=== PATIENT | female | born 1985 | race Two or more races ===

== ENCOUNTER 2025-02-14 08:15 | Outpatient (CLI) | payer OTHER | END 2025-02-14 08:16 | disposition home or self-care (01) | LOC: PRENATAL 08:15 | PROVIDERS: ATTEND Obstetrics & Gynecology Maternal & Fetal Medicine | DX: O36.80X0 Pregnancy with inconclusive fetal viability, not applicable or unspecified (principal); Z36.82 Encounter for antenatal screening for nuchal translucency; Z14.8 Genetic carrier of other disease; O09.529 Supervision of elderly multigravida, unspecified trimester; O36.1999 Maternal care for other isoimmunization, unspecified trimester, other fetus; Z3A.13 13 weeks gestation of pregnancy ==

== ENCOUNTER → 2025-03-31 08:44 | Outpatient (CLI) | payer OTHER | END | disposition home or self-care (01) | LOC: PRENATAL 08:44 | PROVIDERS: ATTEND Obstetrics & Gynecology Maternal & Fetal Medicine | DX: O44.02 Complete placenta previa NOS or without hemorrhage, second trimester (principal); O09.522 Supervision of elderly multigravida, second trimester; O36.1920 Maternal care for other isoimmunization, second trimester, not applicable or unspecified ==